=== PATIENT | male | born 1950 | race Caucasian/White ===

== ENCOUNTER 2025-01-28 12:17 | Emergency (ER) | payer MEDICARE ==
[~2025-01-28] VITALS: Ht 185.4 cm; Wt 92.0 kg
[2025-01-28] MEDS ORDERED: PROZAC10 MG PO (12:28)
[2025-01-28] MEDS ORDERED: CRESTOR5 MG PO (12:28)
[2025-01-28] MEDS ORDERED: VITAMIN B-12500 MCG PO (12:29)
[2025-01-28] MEDS ORDERED: ZYRTEC10 M5 PO (12:29)
[2025-01-28] MEDS ORDERED: LIDOCAINE VISCOUS 2% 15 ML UDC PO ONE (12:35)
[2025-01-28] MEDS ORDERED: ALUM & MAG HYDROX-SIMETHICONE 30 ML PO ONE (12:35)
[2025-01-28 12:42] VITALS: BP 165/89
[2025-01-28 13:00] VITALS: BP 146/83
[2025-01-28] MEDS ORDERED: PROTONIX40 M2 PO (13:31)
[2025-01-28 13:40] VITALS: BP 146/83
== END 2025-01-28 13:43 | disposition home or self-care (01) ==
LOC: ED 12:17
DX: R13.19 Other dysphagia (principal); I10 Essential (primary) hypertension; E11.9 Type 2 diabetes mellitus without complications; Z86.718 Personal history of other venous thrombosis and embolism